=== PATIENT | male | born 1945 | race Caucasian/White ===

== ENCOUNTER 2017-11-29 15:30 | Emergency (ER) | payer MEDICARE, MEDICAID ==
[~2017-11-29] VITALS: Ht 182.9 cm; Wt 86.2 kg
[2017-11-29] MEDS ORDERED: TRAZ-147 PO (16:00)
[2017-11-29] MEDS ORDERED: CLOP75TA33 PO (16:00)
[2017-11-29] MEDS ORDERED: FOLI1TAB16 PO (16:00)
[2017-11-29] MEDS ORDERED: AMLO10TA2 PO (16:00)
[2017-11-29] MEDS ORDERED: LISI-603 PO (16:00)
[2017-11-29] MEDS ORDERED: DOCU100C36 PO (16:00)
[2017-11-29] MEDS ORDERED: ASPI-605 PO (16:00)
[2017-11-29] MEDS ORDERED: FERR325T28 PO (16:00)
[2017-11-29] MEDS ORDERED: DIVA500T54 PO (16:00)
[2017-11-29] MEDS ORDERED: LOPE2TAB25 PO (16:00)
[2017-11-29] MEDS ORDERED: CARV3.122 PO (16:00)
[2017-11-29] MEDS ORDERED: ATOR10TA PO (16:00)
[2017-11-29] MEDS ORDERED: FURO-151 PO (16:00)
[2017-11-29] MEDS ORDERED: CLON0.5T4 PO (16:00)
[2017-11-29] MEDS ORDERED: DONE5TAB34 PO (16:00)
[2017-11-29] MEDS ORDERED: METF850T2 PO (16:00)
[2017-11-29] MEDS ORDERED: MEMA5TAB PO (16:00)
[2017-11-29] MEDS ORDERED: ALLO300T2 PO (16:00)
[2017-11-29] MEDS ORDERED: LINA5TAB PO (16:00)
--- NOTE | 2017-11-29 16:06 | NUR ---
PATIENT IS AWAKE, ALERT, ORIENTED X4. STATES HE IS HERE BECAUSE HE HAS A SKIN "SORE" ON HIS BUTTOCKS. I LOOKED AT IT WITH DR BURTON. ITS A SMALL SKIN ABNORMALITY ON HIS RIGHT BUTTOCKS.
[2017-11-29 16:27] LABS: BASOPHILS % (AUTO) 0.6 % (0.0-2.0); EOSINOPHILS # (AUTO) 0.3 K/uL (0.0-0.7); EOSINOPHILS % (AUTO) 4.2 % (0.0-7.0); HEMATOCRIT 33.9 % (36.7-47.1); HEMOGLOBIN 11.1 g/dL (12.5-16.3); LYMPHOCYTES # (AUTO) 1.7 K/uL (20.0-40.0); LYMPHOCYTES % (AUTO) 27.3 % (20.5-51.5); MEAN CORPUSCULAR HEMOGLOBIN 30.2 uug (23.8-33.4); MEAN CORPUSCULAR HGB CONC 33 g/dL (32.5-36.3); MEAN CORPUSCULAR VOLUME 91.7 fL (73.0-96.2); MONOCYTES # (AUTO) 0.4 K/uL (2.0-10.0); NEUTROPHILS # (AUTO) 3.8 K/uL (1.8-8.9); NEUTROPHILS % (AUTO) 61.9 % (38.5-71.5); PLATELET COUNT (AUTO) 140 K/uL (152-348); RED BLOOD CELL COUNT(AUTO) 3.69 MIL/uL (4.06-5.63); WHITE BLOOD COUNT (AUTO) 6.2 K/uL (3.6-10.2)
[2017-11-29 16:29] LABS: CREATININE 1.3 mg/dL (0.6-1.3); POTASSIUM 3.5 mmol/L (3.5-5.1)
[2017-11-29 16:35] LABS: BILIRUBIN,TOTAL 0.3 mg/dL (0.2-1.0); TOTAL PROTEIN, SERUM 6.1 g/dL (6.4-8.2)
--- NOTE | 2017-11-29 17:16 | NUR ---
PATIENT AWARE THAT WE NEED A URINE SAMPLE. HE STATED HE WILL LET ME KNOW WHEN HE CAN GIVE A SAMPLE.
--- NOTE | 2017-11-29 18:14 | NUR ---
URINE SENT TO LAB.
[2017-11-29 18:28] LABS: *BILIRUBIN,URIN NEGATIVE (NEGATIVE); *BLOOD, URINE NEGATIVE (NEGATIVE); *CLARITY,URINE CLEAR (CLEAR); *COLOR,URINE YELLOW (YELLOW); *KETONES,URINE 1+ (NEGATIVE); *PROTEIN,URINE NEGATIVE (NEGATIVE); *UROBILINOGEN,URINE 0.2 E.U./dl (NORMAL); LEUKOCYTE ESTERASE ,URINE NEGATIVE (NEGATIVE); NITRITE, URINE NEGATIVE (NEGATIVE); UGLUCOSE NEGATIVE (NEGATIVE)
[2017-11-29 18:50] LABS: RBC,URINE 0-3 /HPF (0-3)
[2017-11-29 18:51] LABS: MUCUS,URINE FEW /LPF (0-FEW); WBC,URINE NONE SEEN /HPF (0-3)
--- NOTE | 2017-11-29 18:52 | NUR ---
Patient aware of pending admission to hospital. I offered him some food/drink... he stated he did not want any right now.
--- NOTE | 2017-11-29 19:07 | NUR ---
DR BURTON DISCHAREGED THIS PATIENT BACK TO HIS FACILITY. I CALLED THE FACILITY AND NOTIIFED THEM THAT HE IS TO GO BACK. HE TOLD ME TO CALL THE [employer] AND NOTIFY THE [employer]IC[employer] INSPECTOR WELL AT [phone]... I LEFT A MESSAGE. I THEN CALLED FOR TRANSPORTATION. PATIENT IS AWARE OF THIS.
--- NOTE | 2017-11-29 19:15 | NUR ---
HANDOFF REPORT GIVEN TO MEENAKSHI PÉREZ
--- NOTE | 2017-11-29 19:20 | NUR ---
ASSUMED CARE OF PATIENT. PATIENT IN BED, AWAITING BLS TRANSPORT TO PREVIOUS LEVEL OF CARE. PATIENT IN BED, NO ACUTE DISTRESS NOTED. PATIENT HERE FOR SACRAL PRESSURE ULCER. CLEARED BY ER MD FOR D/C BACK TO PREVIOUS LEVEL OF CARE. PICK-UP ETA @ 1999 BY [facility] BLS TRANSPORT. PATIENT CURRENTLY REMAINS IN BED, NO C/O PAIN NOTED. NO CARDIOPULMONARY DISTRESS NOTED. VSS. NAD. BED IN LOWEST POSITION, CALL LIGHT IS WITHIN REACH. SIDERAILS UPX2.
--- NOTE | 2017-11-29 19:34 | NUR ---
PATIENT PROVIDED PUDDING/ORANGE JUICE PER PATIENT REQUEST. PATIENTS DAUGHTER NOTIFIED OF PATIENT PENDING DISCHRAGE PER PATIENT REQUEST.
--- NOTE | 2017-11-29 20:07 | NUR ---
PATIENT REMAINS IN BED, NO ACUTE DISTRESS NOTED. AWAITING TRANSPORTATION ARRIVAL FOR D/C HOME TRANSPORT.
--- NOTE | 2017-11-29 20:27 | NUR ---
[id number] AT BEDSIDE FOR PATIENT SAMPLE [facility] [employer]. REPORT GIVEN TO ALEJANDRA EMT. Patient discharged to home in stable conditon. Written and verbal after care instructions given. Patient verbalizes understanding of instructions. ALL BELONGINGS WITH PATIENT AT TIME OF D/C. VSS. NO NEW SKIN BREAKDOWN NOTED. REPORT GIVEN TO [facility].
--- NOTE | 2017-11-29 20:43 | NUR ---
LAKIA DOTSON CALLED DUE TO PATIENT BECOMING AGRESSIVE, SCREAMING AT STAFF. PATIENT WAS VERBALLY DEESCALATED AND ASSISTED BY STAFF TO [facility] FOR TRANSPORT HOME. PATIENT WAS COMPLIANT AT TIME OF DISCHARGE AND WAS D/CD WILLINGLY WITH CONSENT FOR TRANSPORT BY PATIENT.
[2017-11-29 20:46] VITALS: BP 123/78
== END 2017-11-29 20:47 | disposition home or self-care (01) ==
LOC: ER 15:34
DX: R53.1 Weakness (principal); L89.159 Pressure ulcer of sacral region, unspecified stage; I10 Essential (primary) hypertension; E11.9 Type 2 diabetes mellitus without complications; I65.23 Occlusion and stenosis of bilateral carotid arteries; I67.2 Cerebral atherosclerosis; Z79.891 Long term (current) use of opiate analgesic; Z79.84 Long term (current) use of oral hypoglycemic drugs; Z79.82 Long term (current) use of aspirin; Z79.899 Other long term (current) drug therapy; Z79.01 Long term (current) use of anticoagulants
CPT/HCPCS: 36415; 70030-TC; 70450; 71045; 85025; 87040; 93005; A4663